=== PATIENT | male | born 1975 | race African-American/Black ===

== ENCOUNTER 2023-05-15 20:36 | Emergency (ER) | payer OTHER, SELFPAY ==
[2023-05-15 20:38] VITALS: BP 223/92; PULSE 101; RESP 22; TEMP 37; O2SAT 100
--- NOTE | 2023-05-15 20:47 | ED.GENADULT ---
HPI - General Adult General Chief complaint: Unspecified Stated complaint: med refill Time Seen by Provider: 05/15/23 20:45 Source: patient Mode of arrival: ambulatory Limitations: no limitations History of Present Illness HPI narrative: This is a 48 year old male that presents to the ER for a medication refill. 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 He ran out of his medications yesterday. Reports he takes blood pressure and diabetes medication. Presents for refills. He has no symptoms currently. Related Data Allergies Allergy/AdvReac Type Severity Reaction Status Date / Time No Known Allergies Allergy Verified 05/15/23 20:50 Review of Systems Review of Systems: CONSTITUTIONAL: Denies fever CARDIOVASCULAR: Denies chest pain RESPIRATORY: Denies dyspnea. NEUROLOGIC: Denies headache All systems reviewed & are unremarkable except as noted in HPI and below PMFSH Past Medical History Medical History (Updated 05/15/23 @ 21:56 by Raeann June PA-C) History of diabetes mellitus History of hypertension Social History Social History (Updated 05/15/23 @ 20:49 by Raeann June PA-C) Substance use: never Exam Narrative: GENERAL: Well-appearing, obese, and in no acute distress. HEAD: Normocephalic, atraumatic. EYES: EOMI. CHEST: No respiratory distress. HEART: Regular rate EXTREMITIES: Normal range of motion. No edema. SKIN: Warm, dry, no rash. NEURO: No focal deficits. Alert and oriented x3. PSYCH: Normal mood and affect Course Course Emergency Course: Patient agrees with plan of care Vital Signs Vital signs: Vital Signs Temperature 98.6 F 05/15/23 20:38 Pulse Rate 101 H 05/15/23 20:38 Respiratory Rate 22 H 05/15/23 20:38 Blood Pressure 223/92 H 05/15/23 20:38 Pulse Oximetry 100 05/15/23 20:38 Oxygen Delivery Room Air 05/15/23 20:38 Temperature 98.6 F 05/15/23 20:38 Pulse Rate 84 05/15/23 21:35 Respiratory Rate 18 05/15/23 21:35 Blood Pressure 182/103 H 05/15/23 21:35 Pulse Oximetry 96 05/15/23 21:35 Oxygen Delivery Room Air 05/15/23 20:38 Medical Decision Making MDM Narrative Medical decision making narrative: Patient presents to the ER for medication refill. He has been out of his medication for a couple days. Needing his diabetes and blood pressure medication refilled. He is asymptomatic. His blood pressure was elevated initially to 200s systolic. He was given his home medication with improvement. Most recent blood pressure 182/103. He was instructed on the importance of establishing with a PCP and not running out of his medications. He was given warnings to return to the ER Vital Signs Vital Signs: Vital Signs Temperature 98.6 F 05/15/23 20:38 Pulse Rate 101 H 05/15/23 20:38 Respiratory Rate 22 H 05/15/23 20:38 Blood Pressure 223/92 H 05/15/23 20:38 Pulse Oximetry 100 05/15/23 20:38 Oxygen Delivery Room Air 05/15/23 20:38 Temperature 98.6 F 05/15/23 20:38 Pulse Rate 84 05/15/23 21:35 Respiratory Rate 18 05/15/23 21:35 Blood Pressure 182/103 H 05/15/23 21:35 Pulse Oximetry 96 05/15/23 21:35 Oxygen Delivery Room Air 05/15/23 20:38 Critical Care Time Critical Care Time Critical Care Time: No Discharge Plan Discharge Clinical Impression: Medication refill Hypertension Qualifiers: Hypertension type: unspecified Qualified Code(s): I10 - Essential (primary) hypertension Diabetes mellitus Qualifiers: Diabetes mellitus type: due to underlying condition 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
[2023-05-15] MEDS: VALSARTAN 160 MG TABLET PO (21:06)
[2023-05-15] MEDS: atenoloL 50 MG TABLET 100 MG PO (21:06)
[2023-05-15 21:35] VITALS: BP 182/103; PULSE 84; RESP 18; O2SAT 96
[2023-05-15 22:10] VITALS: BP 175/100; PULSE 75; RESP 19; O2SAT 100
== END 2023-05-15 22:10 | disposition home or self-care (01) ==
PROVIDERS: Emergency Provider Physician Assistant
DX: E11.9 Type 2 diabetes mellitus without complications (principal); I10 Essential (primary) hypertension; Z76.0 Encounter for issue of repeat prescription
CPT/HCPCS: 99281; A9270